=== PATIENT | female | born 1990 | race Caucasian/White ===

== ENCOUNTER 2022-05-18 18:54 | Emergency (ER) | payer OTHER ==
--- NOTE | 2022-05-18 18:56 | ERPHSYRPT ---
- History of Present Illness Time Seen by Provider: 05/18/22 18:56 Source: patient Allergies/Adverse Reactions: ketorolac [From Toradol] Allergy (Verified 07/25/21 11:26) Sulfa (Sulfonamide Antibiotics) Allergy (Verified 07/25/21 11:26) sulfamethoxazole [From Bactrim] Allergy (Verified 07/25/21 11:26) trimethoprim [From Bactrim] Allergy (Verified 07/25/21 11:26) Home Medications: Albuterol Sulfate [Albuterol Sulfate Hfa] 18 gm IH 09/20/12 [History] Multivit with Iron,Minerals [Compete] 1 tab PO DAILY 09/20/12 [History] Hx Influenza Vaccination/Date Given: No Hx Pneumococcal Vaccination/Date Given: No Travel Risk - Vaccine Status Have you recieved a Covid-19 vaccination: No - Past Medical History Pertinent Past Medical History: Yes Neurological History: No Pertinent History ENT History: No Pertinent History Cardiac History: No Pertinent History Respiratory History: No Pertinent History, Asthma Endocrine Medical History: No Pertinent History Musculoskeletal History: No Pertinent History GI Medical History: No Pertinent History, GERD History: No Pertinent History Psycho-Social History: No Pertinent History Female Reproductive Disorders: Menstrual Problems, Other Other Medical History: Chronic blood loss through menstration. Anemia with iron defiency - Past Surgical History Past Surgical History: Yes Neuro Surgical History: No Pertinent History Cardiac: No Pertinent History Respiratory: No Pertinent History Gastrointestinal: No Pertinent History Genitourinary: No Pertinent History Musculoskeletal: Orthopedic Surgery, Other Female Surgical History: No Pertinent History, Tubal Ligation, Section Other Surgical History: Right hand 2001. benign fibroids removed from right breast 2011. T+A 2015. 2016 and 2019 with tubal ligation - Social History Smoking Status: Never smoker Exposure to second hand smoke: Yes Drug Use: none Patient Lives Alone: No - Departure Referrals: DIDIER CARRASCO [Primary Care Provider] - Follow up/PCP as directed
[2022-05-18] MEDS ORDERED: Hydromorphone 1 mg/ml Injection IV ONE (19:42)
[2022-05-18] MEDS ORDERED: Zofran 4 MG/2 ML VIAL IV ONE (19:42)
[2022-05-18] MEDS ORDERED: Sodium Chloride 0.9% 1000 ML 1,000 ML IV STA (19:42)
--- NOTE | 2022-05-18 19:42 | ERPHSYRPT ---
- History of Present Illness Time Seen by Provider: 05/18/22 18:56 Historian: patient Exam Limitations: no limitations Physician History: This is a 32-year-old morbidly obese white female whose had bilateral tubal ligation in the past as well as section x2 in the past and presents with left flank pain which radiates around to the left lower quadrant. Patient describes the pain as shooting burning pain. She has a history of ruptured ovarian cyst in the past and it feels very similar to this per her report. Patient is just completing her last menstrual period symptoms began 9 days ago in the last 6 days she has had her menstrual period. She is usually not having vaginal bleeding at this point but today she is still having some dark brown with mixed red blood and small amount present vaginally. Patient also states that she has had a low-grade fever. She does not have a fever here today. Patient is refusing any placement of IV and she does not desire any narcotics. Timing/Duration: day(s) (9) Activities at Onset: none Quality: burning, stabbing Abdominal Pain Onset Location: LLQ, flank (Left flank) Pain Radiation: LLQ Severity of Pain-Max: mild (To moderate) Severity of Pain-Current: mild (To moderate) Modifying Factors: Improves With: nothing Associated Symptoms: denies symptoms Previous symptoms: same symptoms as today, no recent treatment Allergies/Adverse Reactions: ketorolac [From Toradol] Allergy (Verified 05/18/22 19:24) Sulfa (Sulfonamide Antibiotics) Allergy (Verified 05/18/22 19:24) sulfamethoxazole [From Bactrim] Allergy (Verified 05/18/22 19:24) trimethoprim [From Bactrim] Allergy (Verified 05/18/22 19:24) Home Medications: Multivit with Iron,Minerals [Compete] 1 tab PO DAILY 09/20/12 [History] Hx Influenza Vaccination/Date Given: No Hx Pneumococcal Vaccination/Date Given: No Travel Risk - International Travel Have you traveled outside of the country in past 3 weeks: No - Coronavirus Screening Are you exhibiting any of the following symptoms?: No Close contact with a COVID-19 positive Pt in past 14-21 Days: No - Vaccine Status Have you recieved a Covid-19 vaccination: No - Review of Systems Constitutional: No Symptoms Eyes: No Symptoms Ears, Nose, & Throat: No Symptoms Respiratory: No Symptoms Cardiac: No Symptoms Abdominal/Gastrointestinal: Abdominal Pain (Left lower quadrant) Genitourinary Symptoms: Vaginal Discharge (Brown with flecks of fresh blood present) Musculoskeletal: No Symptoms Skin: No Symptoms Neurological: No Symptoms Psychological: No Symptoms Endocrine: No Symptoms Hematologic/Lymphatic: No Symptoms Immunological/Allergic: No Symptoms All Other Systems: Reviewed and Negative - Past Medical History Pertinent Past Medical History: Yes Neurological History: No Pertinent History ENT History: No Pertinent History Cardiac History: No Pertinent History Respiratory History: No Pertinent History, Asthma Endocrine Medical History: No Pertinent History Musculoskeletal History: No Pertinent History GI Medical History: No Pertinent History, GERD History: No Pertinent History Psycho-Social History: No Pertinent History Female Reproductive Disorders: Menstrual Problems, Other Other Medical History: Chronic blood loss through menstration. Anemia with iron defiency - Past Surgical History Past Surgical History: Yes Neuro Surgical History: No Pertinent History Cardiac: No Pertinent History Respiratory: No Pertinent History Gastrointestinal: No Pertinent History Genitourinary: No Pertinent History Musculoskeletal: Orthopedic Surgery, Other Female Surgical History: No Pertinent History, Tubal Ligation, Section Other Surgical History: Right hand 2001. benign fibroids removed from right breast 2011. T+A 2015. 2016 and 2019 with tubal ligation - Social History Smoking Status: Never smoker Exposure to second hand smoke: Yes Drug Use: none Patient Lives Alone: No - Nursing Vital Signs Nursing Vital Signs: Initial Vital Signs Temperature 97.7 F 05/18/22 19:26 Pulse Rate 101 H 05/18/22 19:26 Respiratory Rate 20 05/18/22 19:26 Blood Pressure 140/82 05/18/22 19:26 O2 Sat by Pulse Oximetry 99 05/18/22 19:26 Pain Scale Pain Intensity 3 - Physical Exam General Appearance: no apparent distress, alert, anxiety, obese Eye Exam: PERRL/EOMI, eyes nml inspection Ears, Nose, Throat Exam: normal ENT inspection, moist mucous membranes Neck Exam: normal inspection, non-tender, supple, full range of motion Respiratory Exam: normal breath sounds, lungs clear, airway intact, No chest tenderness, No respiratory distress Cardiovascular Exam: regular rate/rhythm, normal heart sounds, normal peripheral pulses Gastrointestinal/Abdomen Exam: soft, normal bowel sounds, tenderness, guarding (Left lower quadrant), No rebound (Left lower quadrant) Pelvic Exam: not done Rectal Exam: not done Back Exam: normal inspection, normal range of motion, No CVA tenderness, No vertebral tenderness Extremity Exam: normal inspection, normal range of motion, pelvis stable Neurologic Exam: alert, oriented x 3, cooperative, milk driver II-XII nml as tested, normal mood/affect, nml cerebellar function, nml station & gait, sensation nml Skin Exam: normal color, warm, dry Lymphatic Exam: No adenopathy SpO2 Interpretation: normal O2 Delivery: Room Air - Course Nursing assessment & vital signs reviewed: Yes Ordered Tests: Active Orders 24 hr Category Date Time Status IV Insertion STAT Care 05/18/22 19:42 Active ABDOMEN AND PELVIS W/0 CONTRAS [CT] Stat Exams 05/18/22 20:19 Taken AMYLASE Stat Lab 05/18/22 19:48 Completed CBC W DIFF Stat Lab 05/18/22 19:48 Completed CMP Stat Lab 05/18/22 19:48 Completed LIPASE Stat Lab 05/18/22 19:48 Completed UA W/RFX UR CULTURE Stat Lab 05/18/22 19:48 Completed Medication Summary Discontinued Medications Generic Name Dose Route Start Last Admin Trade Name Freq PRN Reason Stop Dose Admin Hydromorphone HCl 1 mg 05/18/22 19:42 05/18/22 19:55 Hydromorphone 1 Mg/1ml Inj 1 Mg/Ml Syringe IV 05/18/22 19:43 Not Given STAT ONE Sodium Chloride 1,000 mls @ 999 mls/hr 05/18/22 19:42 05/18/22 19:55 Sodium Chloride 0.9% 1000 Ml IV 05/18/22 20:42 Not Given .Q1H1M STA Ondansetron HCl 4 mg 05/18/22 19:42 05/18/22 19:55 Ondansetron Hcl 4 Mg/2 Ml Vial IV 05/18/22 19:43 Not Given STAT ONE Lab/Rad Data: Laboratory Result Diagrams 05/18/22 19:48 05/18/22 19:48 Laboratory Results 05/18/22 05/18/22 05/18/22 Range/Units 19:48 19:48 19:48 WBC 10.1 (4.0-10.5) x10^3/uL RBC 5.04 (4.1-5.4) x10^6/uL Hgb 12.3 (12.0-16.0) g/dL Hct 40.5 (35-47) % MCV 80.4 (78-100) fL MCH 24.4 L (26-32) pg MCHC 30.4 L (32-36) g/dL RDW 14.6 H (11.5-14.0) % Plt Count 297 (150-450) x10^3/uL MPV 9.3 (7.5-11.0) fL Gran % 60.0 (36.0-66.0) % Immature Gran % (Auto) 0.3 (0.00-0.4) % Nucleat RBC Rel Count 0.0 (0.00-0.1) % Eos # (Auto) 0.25 (0-0.5) x10^3/uL Immature Gran # (Auto) 0.03 (0.00-0.03) x10^3u/L Absolute Lymphs (auto) 2.82 (1.0-4.6) x10^3/uL Absolute Monos (auto) 0.87 (0.0-1.3) x10^3/uL Absolute Nucleated RBC 0.00 (0.00-0.01) x10^3u/L Lymphocytes % 28.1 (24.0-44.0) % Monocytes % 8.7 (0.0-12.0) % Eosinophils % 2.5 (0.00-5.0) % Basophils % 0.4 (0.0-0.4) % Absolute Granulocytes 6.04 (1.4-6.9) x10^3/uL Basophils # 0.04 (0-0.4) x10^3/uL Sodium 140 (137-145) mmol/L Potassium 3.9 (3.5-5.1) mmol/L Chloride 104 (98-107) mmol/L Carbon Dioxide 30 (22-30) mmol/L Anion Gap 10.0 (5-15) MEQ/L BUN 12 (7-17) mg/dL Creatinine 0.80 (0.52-1.04) mg/dL Estimated GFR > 60.0 ML/MIN Glucose 103 (74-106) mg/dL Calcium 9.3 (8.4-10.2) mg/dL Total Bilirubin 0.30 (0.2-1.3) mg/dL AST 24 (14-36) U/L ALT 25 (0-35) U/L Alkaline Phosphatase 109 (38-126) U/L Serum Total Protein 7.9 (6.3-8.2) g/dL Albumin 4.3 (3.5-5.0) g/dL Amylase 65 (30-110) U/L Lipase 67 (23-300) U/L Urine Color Yellow (Yellow) Urine Appearance Clear (Clear) Urine pH 7.5 (4.6-8.0) Ur Specific [place] 1.020 (1.005-1.030) Urine Protein Negative (Negative) Urine Glucose (UA) Negative (Negative) mg/dL Urine Ketones Negative (Negative) Urine Blood Negative (Negative) Urine Nitrite Negative (Negative) Urine Bilirubin Negative (Negative) Urine Urobilinogen 1.0 A (0.2) mg/dL Ur Leukocyte Esterase Negative (Negative) U Hyaline Cast (Auto) NONE SEEN (0-2) /LPF Urine Microscopic RBC 0-2 (0-5) /HPF Urine Microscopic WBC 0-2 (0-5) /HPF Ur Epithelial Cells None Seen (None Seen) /HPF Urine Bacteria None Seen (None Seen) /HPF Urine Culture Reflexed NO (NO) - Progress Progress: improved, pain not gone completely Progress Note: 05/18/22 21:17 CAT scan of the abdomen pelvis without contrast shows hepatomegaly and splenomegaly. No other significant intra-abdominal or intrapelvic findings. Medical decision making: This patient has a medical issue in the emergency department of moderate complexity. I determined this level of complexity after discussing with the patient her specific complaints, obtaining her history not only directly from her but also review of old records and old laboratory results. In addition, I used the patient's physical exam findings to help determine his work-up here in the emergency department as well as her treatment. The patient has refused an intravenous line she is allowing blood draw and urinalysis as well as a CAT scan of the abdomen pelvis. She does not want any narcotic pain medicine. After the results of the laboratory data, urinalysis and the CAT scan of the abdomen and pelvis without contrast reviewed, I discussed with the patient discharge plan. Patient is having a mild amount of vaginal bleeding that has persisted a few days beyond her normal menstrual period timeframe per her report. Patient is to drink plenty of fluids. She is to follow-up with her primary care provider or field health officer. She is to use Tylenol and/or ibuprofen for pain control if she has no contraindications. Patient has a history of chronic anemia but her hemoglobin and vital signs are stable. Counseled pt/family regarding: lab results, diagnosis, need for follow-up, rad results - Departure Departure Disposition: Home Clinical Impression: Vaginal bleeding, Left lower quadrant abdominal pain, Left flank pain Condition: Stable Critical Care Time: No Referrals: DIDIER CARRASCO [Primary Care Provider] - Follow up/PCP as directed Additional Instructions: Drink plenty of fluids. If there are no contraindications, use Tylenol and ibuprofen for pain control. Follow-up with your primary care provider or your field health officer for further evaluation and management. Continue your other medication as prescribed.
[2022-05-18 20:15] LABS: Absolute Neutrophil Ct (ANC) 6.04 x10^3/uL (1.4-6.9); BASOPHIL % 0.4 % (0.0-0.4); Basophil (Absolute #) 0.04 x10^3/uL (0-0.4); Eosinophil % 2.5 % (0.00-5.0); Eosinophil (Absolute #) 0.25 x10^3/uL (0-0.5); Hematocrit 40.5 % (35-47); Hemoglobin 12.3 g/dL (12.0-16.0); IMMATURE GRAN # 0.03 x10^3u/L (0.00-0.03); IMMATURE GRAN % 0.3 % (0.00-0.4); Lymphocyte (Absolute #) 2.82 x10^3/uL (1.0-4.6); Lymphocytes % 28.1 % (24.0-44.0); Mean Cell Volume 80.4 fL (78-100); Mean Corpuscular Hemoglobin 24.4 pg (26-32); Mean Corpuscular Hgb Concent. 30.4 g/dL (32-36); Mean Platelet Volume 9.3 fL (7.5-11.0); Monocyte (Absolute #) 0.87 x10^3/uL (0.0-1.3); Monocytes % 8.7 % (0.0-12.0); Platelet Count 297 x10^3/uL (150-450); Red Blood Count 5.04 x10^6/uL (4.1-5.4); Red Cell Distribution Width 14.6 % (11.5-14.0); White Blood Count 10.1 x10^3/uL (4.0-10.5)
[2022-05-18 20:24] LABS: Appearance Clear (Clear); Bacteria None Seen /HPF (None Seen); Bilirubin Negative (Negative); Blood Negative (Negative); Epithelial Cells None Seen /HPF (None Seen); Glucose, Urine Negative (Negative); Hyaline Casts NONE SEEN /LPF (0-2); Ketones Negative (Negative); Leukocyte Esterase Negative (Negative); Nitrite Negative (Negative); Ph 7.5 (4.6-8.0); Protein,Urine Dip Negative (Negative); RBC 0-2 /HPF (0-5); WBC 0-2 /HPF (0-5)
[2022-05-18 20:33] LABS: ADD URINE CULTURE? NO (NO)
[2022-05-18 20:37] LABS: ALBUMIN 4.3 g/dL (3.5-5.0); ALKALINE PHOSPHATASE 109 U/L (38-126); AMYLASE 65 U/L (30-110); BLOOD UREA NITROGEN 12 mg/dL (7-17); CHLORIDE 104 mmol/L (98-107); Calcium 9.3 mg/dL (8.4-10.2); Carbon Dioxide 30 mmol/L (22-30); EST GLOMERULAR FILTRATION RATE > 60.0 ML/MIN; Glucose 103 mg/dL (74-106); LIPASE 67 U/L (23-300); Potassium 3.9 mmol/L (3.5-5.1); SGOT/AST 24 U/L (14-36); SGPT/ALT 25 U/L (0-35); SODIUM 140 mmol/L (137-145); Total Protein 7.9 g/dL (6.3-8.2)
[2022-05-18 21:02] VITALS: BP 126/82; PULSE 103; O2SAT 98
--- NOTE | 2022-05-19 08:49 | XRAY ---
Indication: Left flank pain and nausea. Multiple contiguous axial images obtained through the abdomen and pelvis without contrast using renal stone protocol. Comparison: None Lung bases are clear. Heart not enlarged. No renal calculus or evidence for obstructive uropathy in either system. Stomach is distended with food/fluid. Noncontrasted stomach and bowel loops appear nonobstructed with normal appendix. Previous cholecystectomy. Mild fatty hepatomegaly measuring 21 cm and splenomegaly measuring 14 cm. No free fluid/air. Remaining liver, pancreas, spleen, adrenal glands, kidneys, ureters, bladder, uterus, and aorta are unremarkable for noncontrast exam. Osseous structures intact with mild lumbosacral junction degenerative disc disease. No ventral or inguinal hernias. Impression: 1. Negative renal calculus or evidence for obstructive uropathy. 2. Fatty hepatomegaly and splenomegaly. 3. Remaining CT abdomen/pelvis without contrast exam is negative.
== END 2022-05-18 21:31 | disposition home or self-care (01) ==
LOC: ED 18:54
DX: N93.9 Abnormal uterine and vaginal bleeding, unspecified (principal); R10.32 Left lower quadrant pain; R10.9 Unspecified abdominal pain; R50.9 Fever, unspecified; Z28.310 Unvaccinated for COVID-19
CPT/HCPCS: 36415; 74176; 80053; 81001; 82150; 83690; 85025; 99283

== ENCOUNTER 2023-11-20 06:48 | Emergency (ER) | payer OTHER ==
[2023-11-20] MEDS ORDERED: XYLOCAINE 1% HCL 20 ML MDV IJ ONE (06:49)
[2023-11-20 07:03] VITALS: TEMP 97.8
--- NOTE | 2023-11-20 07:13 | ERPHSYRPT ---
- History of Present Illness Time Seen by Provider: 11/20/23 07:00 Historian: patient Exam Limitations: no limitations Patient Subjective Stated Complaint: pt states she has not been feeling well, had a hot flash and bp was 166/101 prior to checking in. c/o pain 4/10 in lt upper abd/below breast Triage Nursing Assessment: pt alert and oriented, answers questions approp. pt ambualtes into room with steady gait noted. respirations nonlabored. skin warm and dry. heart rate 98 on monitor, sinus rhythm. Physician History: For the past 4 days pt has had dull/crampy constant LUQ abdominal pain & left chest pain 4/10 in severity; for the past hour YR=775/101, dizziness and diaphoresis. Pt denies shortness of air, fever, nausea, vomiting, diarrhea, headache. Allergies/Adverse Reactions: nitrofurantoin [From Macrobid] Allergy (Intermediate, Verified 11/20/23 07:08) Hives Sulfa (Sulfonamide Antibiotics) Allergy (Intermediate, Verified 11/20/23 07:08) Hives sulfamethoxazole [From Bactrim] Allergy (Intermediate, Verified 11/20/23 07:08) Hives trimethoprim [From Bactrim] Allergy (Intermediate, Verified 11/20/23 07:08) Hives ketorolac [From Toradol] Adverse Reaction (Intermediate, Verified 11/20/23 07:08) feels bad Hx Tetanus, Diphtheria Vaccination/Date Given: No Hx Influenza Vaccination/Date Given: No Hx Pneumococcal Vaccination/Date Given: No Immunizations Up to Date: No Travel Risk - International Travel Have you traveled outside of the country in past 3 weeks: No - Emerging Infectious Disease Are you exhibiting symptoms associated with any current EIDs: No - Review of Systems Constitutional: No Fever Respiratory: No Dyspnea Abdominal/Gastrointestinal: Abdominal Pain, No Nausea, No Vomiting, No Diarrhea Neurological: Dizziness, No Headache - Past Medical History Pertinent Past Medical History: Yes Neurological History: No Pertinent History ENT History: No Pertinent History Cardiac History: No Pertinent History Respiratory History: Asthma Endocrine Medical History: No Pertinent History Musculoskeletal History: No Pertinent History GI Medical History: No Pertinent History History: No Pertinent History Psycho-Social History: Anxiety, Bipolar, Depression Female Reproductive Disorders: Menstrual Problems, Other Other Medical History: Chronic blood loss through menstruation. Anemia with iron defiency - Past Surgical History Past Surgical History: Yes Neuro Surgical History: No Pertinent History Cardiac: No Pertinent History Respiratory: No Pertinent History Gastrointestinal: Cholecystectomy Genitourinary: No Pertinent History Musculoskeletal: Orthopedic Surgery, Other Female Surgical History: No Pertinent History, Tubal Ligation, Section Other Surgical History: Right hand 2002. benign fibroids removed from right breast 2011. T+A 2015. 2016 and 2019 with tubal ligation - Female History Hx Last Menstrual Period: 10/25/23 Hx Now: No - Social History Smoking Status: Never smoker Exposure to second hand smoke: No Drug Use: none Patient Lives Alone: No - Social Determinants of Health Will the patient participate in the screening: Declined to provide - Nursing Vital Signs Nursing Vital Signs: Initial Vital Signs Temperature 97.8 F 11/20/23 06:50 Pulse Rate 102 H 11/20/23 06:50 Respiratory Rate 18 11/20/23 06:50 Blood Pressure 147/88 11/20/23 06:50 O2 Sat by Pulse Oximetry 100 11/20/23 06:50 Pain Scale Pain Intensity 4 - Physical Exam General Appearance: alert Eye Exam: PERRL/EOMI Ears, Nose, Throat Exam: TMs normal, pharyngeal erythema (mild) Neck Exam: normal inspection Respiratory Exam: normal breath sounds Cardiovascular Exam: normal heart sounds Gastrointestinal/Abdomen Exam: normal bowel sounds Back Exam: normal inspection Extremity Exam: swelling (+1 edema of ankles) Neurologic Exam: alert, cooperative Skin Exam: warm, dry SpO2 Interpretation: normal SpO2: 100 O2 Delivery: Room Air - Course Nursing assessment & vital signs reviewed: Yes EKG Interpreted by Me: RATE (100), Sinus Rhythm, NORMAL AXIS, Other (QTc = 414) - Radiology Exams Chest X-ray Interpretation: Discussed w/ radiologist (PA/lateral chest again demonstrates normal heart, lungs and bony thorax.) - CT Exams Abdomen/Pelvis CT Interpretation: Discussed w/radiologist (Again fatty hepatomegaly, splenomegaly and lumbosacral junction degenerative diac disease. No new/acute findings on this noncontrast exam.) Ordered Tests: Active Orders 24 hr Category Date Time Status EKG-ER Only STAT Care 11/20/23 07:15 Active IV Insertion STAT Care 11/20/23 07:15 Active ABDOMEN AND PELVIS W/0 CONTRAS [CT] Stat Exams 11/20/23 07:16 Completed CHEST 2 VIEWS (PA AND LAT) Stat Exams 11/20/23 07:16 Completed AMYLASE Stat Lab 11/20/23 07:38 Completed CBC W DIFF Stat Lab 11/20/23 07:38 Completed CMP Stat Lab 11/20/23 07:38 Completed CULTURE,URINE Stat Lab 11/20/23 07:45 Received LIPASE Stat Lab 11/20/23 07:38 Completed MAGNESIUM Stat Lab 11/20/23 07:38 Completed TROPONIN Q4H Lab 11/20/23 07:38 Completed TROPONIN Q4H Lab 11/20/23 11:30 Ordered TROPONIN Q4H Lab 11/20/23 15:30 Ordered UA W/RFX UR CULTURE Stat Lab 11/20/23 07:45 Completed Medication Summary Generic Name Dose Route Start Last Admin Trade Name Freq PRN Reason Stop Dose Admin Sodium Chloride 1,000 mls @ 100 mls/hr 11/20/23 07:15 11/20/23 08:21 Sodium Chloride 0.9% 1000 Ml IV 12/20/23 07:14 Not Given .Q10H MAGNOLIA Discontinued Medications Generic Name Dose Route Start Last Admin Trade Name Freq PRN Reason Stop Dose Admin Ceftriaxone Sodium 1,000 mg 11/20/23 08:21 11/20/23 08:29 Ceftriaxone Sodium 1000 Mg Inj Vial IM 11/20/23 08:22 1,000 mg STAT ONE Administration Ceftriaxone Sodium Confirm 11/20/23 08:23 Ceftriaxone Sodium 1000 Mg Inj Vial Administered 11/20/23 08:24 Dose 1,000 mg .ROUTE .STK-MED ONE Acetaminophen 1,000 mg in 100 mls @ 400 mls/hr 11/20/23 07:17 11/20/23 08:21 Ofirmev IV 11/20/23 07:31 Not Given 1HRPRIOR ONE Acetaminophen Confirm 11/20/23 07:52 Ofirmev Administered 11/20/23 07:53 Dose 100 mls @ ud IV .STK-MED ONE Ceftriaxone Sodium 1 gm in 100 mls @ 200 mls/hr 11/20/23 08:06 Rocephin 1 Gm / 100 Ml Nacl IV 11/20/23 08:35 STAT ONE Lab/Rad Data: Laboratory Result Diagrams 11/20/23 07:38 11/20/23 07:38 Laboratory Results 08/06/24 08/06/24 08/06/24 Range/Units 07:45 07:38 07:38 WBC (3.98-10.04) x10^3/uL RBC (3.93-5.22) x10^6/uL Hgb (11.2-15.7) g/dL Hct (34.1-44.9) % MCV (79.4-94.8) fL MCH (25.6-32.2) pg MCHC (32.2-35.5) g/dL RDW (11.7-14.4) % Plt Count (182-369) x10^3/uL MPV (9.4-12.3) fL Gran % (34.0-71.1) % Immature Gran % (Auto) (0.001-0.429) % Nucleat RBC Rel Count (0.00-0.2) % Eos # (Auto) (0.04-0.36) x10^3/uL Immature Gran # (Auto) (0.001-0.031) x10^3u/L Absolute Lymphs (auto) (1.18-3.74) x10^3/uL Absolute Monos (auto) (0.24-0.86) x10^3/uL Absolute Nucleated RBC (0.00-0.012) x10^3u/L Lymphocytes % (19.3-51.7) % Monocytes % (4.7-12.5) % Eosinophils % (0.7-5.8) % Basophils % (0.1-1.2) % Absolute Granulocytes (1.56-6.13) x10^3/uL Basophils # (0.01-0.08) x10^3/uL Sodium 140 (135-145) mmol/L Potassium 3.9 (3.5-5.1) mmol/L Chloride 106 (98-107) mmol/L Carbon Dioxide 26 (22-30) mmol/L Anion Gap 12.1 (5-15) MEQ/L BUN 13 (7-17) mg/dL Creatinine 0.89 (0.52-1.04) mg/dL Estimated GFR 88.8 ML/MIN Glucose 123 H (74-106) mg/dL Calcium 9.2 (8.4-10.2) mg/dL Magnesium 1.9 (1.6-2.3) mg/dL Total Bilirubin 0.20 (0.2-1.3) mg/dL AST 21 (14-36) U/L ALT 18 (0-35) U/L Alkaline Phosphatase 108 (38-126) U/L Troponin I < 0.012 (0.000-0.033) ng/mL Serum Total Protein 6.7 (6.3-8.2) g/dL Albumin 3.9 (3.5-5.0) g/dL Amylase 64 (30-110) U/L Lipase 112 (23-300) U/L Urine Color Yellow (Yellow) Urine Appearance Cloudy A (Clear) Urine pH 5.5 (4.6-8.0) Ur Specific [place] >=1.030 A (1.005-1.030) Urine Protein Negative (Negative) Urine Glucose (UA) Negative (Negative) mg/dL Urine Ketones Trace A (Negative) Urine Blood Negative (Negative) Urine Nitrite Negative (Negative) Urine Bilirubin Negative (Negative) Urine Urobilinogen 1.0 A (0.2) mg/dL Ur Leukocyte Esterase Trace A (Negative) U Hyaline Cast (Auto) 3-5 A (0-2) /LPF Urine Microscopic RBC 0-2 (0-5) /HPF Urine Microscopic WBC 11-20 A (0-5) /HPF Ur Epithelial Cells Moderate A (None Seen) /HPF Urine Bacteria Moderate A (None Seen) /HPF Urine Culture Reflexed YES (NO) Influenza Type A Ag (NEGATIVE) Influenza Type B Ag (NEGATIVE) RSV (PCR) (NEGATIVE) SARS-CoV-2 (PCR) (NEGATIVE) Group A Strep Antibody (NEGATIVE) 11/20/23 11/20/23 11/20/23 Range/Units 07:38 07:32 07:30 WBC 10.3 H (3.98-10.04) x10^3/uL RBC 4.66 (3.93-5.22) x10^6/uL Hgb 11.6 (11.2-15.7) g/dL Hct 36.8 (34.1-44.9) % MCV 79.0 L (79.4-94.8) fL MCH 24.9 L (25.6-32.2) pg MCHC 31.5 L (32.2-35.5) g/dL RDW 14.0 (11.7-14.4) % Plt Count 264 (182-369) x10^3/uL MPV 9.5 (9.4-12.3) fL Gran % 57.5 (34.0-71.1) % Immature Gran % (Auto) 0.3 (0.001-0.429) % Nucleat RBC Rel Count 0.0 (0.00-0.2) % Eos # (Auto) 0.19 (0.04-0.36) x10^3/uL Immature Gran # (Auto) 0.03 (0.001-0.031) x10^3u/L Absolute Lymphs (auto) 3.39 (1.18-3.74) x10^3/uL Absolute Monos (auto) 0.74 (0.24-0.86) x10^3/uL Absolute Nucleated RBC 0.00 (0.00-0.012) x10^3u/L Lymphocytes % 32.8 (19.3-51.7) % Monocytes % 7.2 (4.7-12.5) % Eosinophils % 1.8 (0.7-5.8) % Basophils % 0.4 (0.1-1.2) % Absolute Granulocytes 5.93 (1.56-6.13) x10^3/uL Basophils # 0.04 (0.01-0.08) x10^3/uL Sodium (135-145) mmol/L Potassium (3.5-5.1) mmol/L Chloride (98-107) mmol/L Carbon Dioxide (22-30) mmol/L Anion Gap (5-15) MEQ/L BUN (7-17) mg/dL Creatinine (0.52-1.04) mg/dL Estimated GFR ML/MIN Glucose (74-106) mg/dL Calcium (8.4-10.2) mg/dL Magnesium (1.6-2.3) mg/dL Total Bilirubin (0.2-1.3) mg/dL AST (14-36) U/L ALT (0-35) U/L Alkaline Phosphatase (38-126) U/L Troponin I (0.000-0.033) ng/mL Serum Total Protein (6.3-8.2) g/dL Albumin (3.5-5.0) g/dL Amylase (30-110) U/L Lipase (23-300) U/L Urine Color (Yellow) Urine Appearance (Clear) Urine pH (4.6-8.0) Ur Specific [place] (1.005-1.030) Urine Protein (Negative) Urine Glucose (UA) (Negative) mg/dL Urine Ketones (Negative) Urine Blood (Negative) Urine Nitrite (Negative) Urine Bilirubin (Negative) Urine Urobilinogen (0.2) mg/dL Ur Leukocyte Esterase (Negative) U Hyaline Cast (Auto) (0-2) /LPF Urine Microscopic RBC (0-5) /HPF Urine Microscopic WBC (0-5) /HPF Ur Epithelial Cells (None Seen) /HPF Urine Bacteria (None Seen) /HPF Urine Culture Reflexed (NO) Influenza Type A Ag NEGATIVE (NEGATIVE) Influenza Type B Ag NEGATIVE (NEGATIVE) RSV (PCR) NEGATIVE (NEGATIVE) SARS-CoV-2 (PCR) NEGATIVE (NEGATIVE) Group A Strep Antibody NOT DETECTED (NEGATIVE) - Progress Progress: improved Counseled pt/family regarding: lab results, diagnosis, need for follow-up, rad results Medical Desision Making - Diagnostic Testing Diagnostic test were ordered, analyzed, and reviewed by me: Yes Radiological Interpretation: Discussed w/ radiologist - Departure Departure Disposition: Home Clinical Impression: UTI (urinary tract infection), HTN (hypertension), Abdominal pain Condition: Stable Critical Care Time: No Referrals: CHERYLE SWEET DELIVERY RN [Primary Care Provider] - Follow up/PCP as directed Instructions: Malignant Hypertension (DC), Urinary tract infections in adults Additional Instructions: Follow up with private doctor today. Forms: Work/School Release Form Prescriptions: Cefpodoxime Proxetil 200 mg [Vantin 200 mg] 200 mg PO BID #20 tablet
[2023-11-20 07:47] LABS: Absolute Neutrophil Ct (ANC) 5.93 x10^3/uL (1.56-6.13); BASOPHIL % 0.4 % (0.1-1.2); Basophil (Absolute #) 0.04 x10^3/uL (0.01-0.08); Eosinophil % 1.8 % (0.7-5.8); Eosinophil (Absolute #) 0.19 x10^3/uL (0.04-0.36); Hematocrit 36.8 % (34.1-44.9); Hemoglobin 11.6 g/dL (11.2-15.7); IMMATURE GRAN # 0.03 x10^3u/L (0.001-0.031); IMMATURE GRAN % 0.3 % (0.001-0.429); Lymphocyte (Absolute #) 3.39 x10^3/uL (1.18-3.74); Lymphocytes % 32.8 % (19.3-51.7); Mean Corpuscular Hemoglobin 24.9 pg (25.6-32.2); Mean Corpuscular Hgb Concent. 31.5 g/dL (32.2-35.5); Mean Platelet Volume 9.5 fL (9.4-12.3); Monocyte (Absolute #) 0.74 x10^3/uL (0.24-0.86); Monocytes % 7.2 % (4.7-12.5); Neutrophil % 57.5 % (34.0-71.1); Platelet Count 264 x10^3/uL (182-369); Red Blood Count 4.66 x10^6/uL (3.93-5.22); White Blood Count 10.3 x10^3/uL (3.98-10.04)
[2023-11-20] MEDS ORDERED: Sodium Chloride 0.9% 1000 ML 0 ML ONE (07:52)
[2023-11-20] MEDS ORDERED: OFIRMEV IV ONE (07:52)
[2023-11-20 07:57] LABS: Appearance Cloudy (Clear); Bacteria Moderate /HPF (None Seen); Bilirubin Negative (Negative); Blood Negative (Negative); Epithelial Cells Moderate /HPF (None Seen); Glucose, Urine Negative (Negative); Ketones Trace (Negative); Leukocyte Esterase Trace (Negative); Nitrite Negative (Negative); Ph 5.5 (4.6-8.0); Protein,Urine Dip Negative (Negative); RBC 0-2 /HPF (0-5); Specific Gravity >=1.030 (1.005-1.030)
[2023-11-20 07:58] LABS: ADD URINE CULTURE? YES (NO)
[2023-11-20 08:06] LABS: ALBUMIN 3.9 g/dL (3.5-5.0); ANION GAP 12.1 MEQ/L (5-15); BILIRUBIN,TOTAL 0.2 mg/dL (0.2-1.3); Calcium 9.2 mg/dL (8.4-10.2); Creatinine 1 0.89 mg/dL (0.52-1.04); EST GLOMERULAR FILTRATION RATE 88.8 ML/MIN; MAGNESIUM 1.9 mg/dL (1.6-2.3); Potassium 3.9 mmol/L (3.5-5.1); Total Protein 6.7 g/dL (6.3-8.2)
[2023-11-20] MEDS: OFIRMEV 1,000 MG/100 ML ML IV ONE (08:21)
[2023-11-20] MEDS: Sodium Chloride 0.9% 1000 ML 1,000 ML IV SCH (08:21)
[2023-11-20] MEDS ORDERED: Rocephin 1000 MG INJ ONE (08:23)
[2023-11-20] MEDS: Rocephin 1000 MG INJ IM ONE (08:29)
[2023-11-20 08:30] LABS: INFLUENZA A NEGATIVE (NEGATIVE); INFLUENZA B NEGATIVE (NEGATIVE); RESPIRATORY SYNCTIAL VIRUS NEGATIVE (NEGATIVE); SARS-CoV-2 Xpert Express NEGATIVE (NEGATIVE)
--- NOTE | 2023-11-20 08:36 | XRAY ---
Indication: Left upper quadrant abdominal pain. Hot flash. Multiple contiguous axial images obtained through abdomen and pelvis without contrast. Comparison: May 18, 2022 Lung bases remain clear. Heart not enlarged. Stomach is distended with food/fluid. Noncontrasted stomach and bowel loops appear nonobstructed with normal appendix. Again 20 cm fatty hepatomegaly, 14.2 cm splenomegaly, and cholecystectomy. No free fluid/air. Remaining liver, pancreas, spleen, adrenal glands, kidneys, ureters, bladder, uterus, and aorta are unremarkable for noncontrast exam. Osseous structures intact again with mild lumbosacral junction degenerative disc disease. Impression: Again fatty hepatomegaly, splenomegaly, and lumbosacral junction degenerative disc disease. No new/acute findings on this noncontrast exam.
--- NOTE | 2023-11-20 08:36 | XRAY ---
Indication: Left chest pain. Comparison: May 14, 2013 PA/lateral chest again demonstrates normal heart, lungs, and bony thorax.
[2023-11-20 08:37] VITALS: BP 126/76; PULSE 101
[2023-11-20 08:48] VITALS: O2SAT 100
[2023-11-20 09:24] VITALS: RESP 16
[2023-11-20] MEDS: ROCEPHIN 1 GM / 100 ML NaCl 1 GM/100 ML IVPB IV ONE (09:25)
== END 2023-11-20 09:23 | disposition home or self-care (01) ==
LOC: ED 06:48
DX: N39.0 Urinary tract infection, site not specified (principal); I10 Essential (primary) hypertension; R10.12 Left upper quadrant pain; R07.9 Chest pain, unspecified; R42 Dizziness and giddiness; Z79.899 Other long term (current) drug therapy
CPT/HCPCS: 0241U; 36415; 71046; 74176; 80053; 81001; 82150; 83690; 83735; 84484; 85025; 87086; 87651; 93005; 96372; 99284; J0696

== ENCOUNTER 2024-03-24 19:57 | Emergency (ER) | payer OTHER ==
--- NOTE | 2024-03-24 20:06 | ERPHSYRPT ---
- History of Present Illness Time Seen by Provider: 03/24/24 20:05 Historian: patient Exam Limitations: no limitations Physician History: This is a morbidly obese 33-year-old white female patient who arrives by private vehicle with 2-week history of intermittent left upper quadrant abdominal pain with radiation into her left flank. She has had intermittent episodes of nausea. Patient has had a cholecystectomy, bilateral tubal ligation and section. Patient does not want a intravenous line. She plans to go to work and therefore she does not want anything sedating. She also does not want any antiemetic or oral pain medicine at this time. Patient denies chest pain. Patient denies shortness of breath. Patient does have a history of asthma, anxiety, bipolar disorder, depression, and chronic anemia. Timing/Duration: week(s) (2 weeks), intermittent Abdominal Pain Onset Location: [facility] Pain Radiation: flank (Left flank) Severity of Pain-Max: moderate Severity of Pain-Current: mild Modifying Factors: Improves With: nothing Associated Symptoms: nausea, No chest pain, No fever/chills, No headache, No loss of appetite, No neck pain, No shortness of breath, No weakness Previous symptoms: same symptoms as today, no recent treatment Allergies/Adverse Reactions: nitrofurantoin [From Macrobid] Allergy (Intermediate, Verified 03/24/24 20:20) Hives Sulfa (Sulfonamide Antibiotics) Allergy (Intermediate, Verified 03/24/24 20:20) Hives sulfamethoxazole [From Bactrim] Allergy (Intermediate, Verified 03/24/24 20:20) Hives trimethoprim [From Bactrim] Allergy (Intermediate, Verified 03/24/24 20:20) Hives escitalopram [From Lexapro] Adverse Reaction (Severe, Verified 03/24/24 20:20) buspirone [From BuSpar] Adverse Reaction (Intermediate, Verified 03/24/24 20:20) ketorolac [From Toradol] Adverse Reaction (Intermediate, Verified 03/24/24 20:20) feels bad lorazepam [From Ativan] Adverse Reaction (Verified 03/24/24 20:20) Hx Tetanus, Diphtheria Vaccination/Date Given: No Hx Influenza Vaccination/Date Given: No Hx Pneumococcal Vaccination/Date Given: No Travel Risk - International Travel Have you traveled outside of the country in past 3 weeks: No - Emerging Infectious Disease Are you exhibiting symptoms associated with any current EIDs: No - Review of Systems Constitutional: No Symptoms Eyes: No Symptoms Ears, Nose, & Throat: No Symptoms Respiratory: No Symptoms Cardiac: No Symptoms Abdominal/Gastrointestinal: Abdominal Pain (Left upper quadrant), Nausea, No Vomiting, No Diarrhea, No Constipation, No Appetite Changes Genitourinary Symptoms: No Symptoms Musculoskeletal: No Symptoms Skin: No Symptoms Neurological: No Symptoms Psychological: No Symptoms Endocrine: No Symptoms Hematologic/Lymphatic: No Symptoms Immunological/Allergic: No Symptoms All Other Systems: Reviewed and Negative - Past Medical History Pertinent Past Medical History: Yes Neurological History: No Pertinent History ENT History: No Pertinent History Cardiac History: No Pertinent History Respiratory History: Asthma Endocrine Medical History: No Pertinent History Musculoskeletal History: No Pertinent History GI Medical History: No Pertinent History History: No Pertinent History Psycho-Social History: Anxiety, Bipolar, Depression Female Reproductive Disorders: Menstrual Problems, Other Other Medical History: Chronic blood loss through menstruation. Anemia with iron defiency - Past Surgical History Past Surgical History: Yes Neuro Surgical History: No Pertinent History Cardiac: No Pertinent History Respiratory: No Pertinent History Gastrointestinal: Cholecystectomy Genitourinary: No Pertinent History Musculoskeletal: Orthopedic Surgery, Other Female Surgical History: No Pertinent History, Tubal Ligation, Section Other Surgical History: Right hand 2001. benign fibroids removed from right breast 2011. T+A 2015. 2016 and 2019 with tubal ligation - Female History Hx Last Menstrual Period: 10/25/23 - Social History Smoking Status: Never smoker Exposure to second hand smoke: No Drug Use: none Patient Lives Alone: No - Social Determinants of Health Will the patient participate in the screening: Declined to provide - Nursing Vital Signs Nursing Vital Signs: Initial Vital Signs Temperature 97.6 F 03/24/24 19:57 Pulse Rate 101 H 03/24/24 19:57 Respiratory Rate 20 03/24/24 19:57 Blood Pressure 136/89 03/24/24 19:57 O2 Sat by Pulse Oximetry 99 03/24/24 19:57 Pain Scale Pain Intensity 6 - Physical Exam General Appearance: no apparent distress, alert, anxiety, obese Eye Exam: PERRL/EOMI, eyes nml inspection Ears, Nose, Throat Exam: normal ENT inspection, moist mucous membranes Neck Exam: normal inspection, non-tender, supple, full range of motion Respiratory Exam: normal breath sounds, lungs clear, airway intact, No chest tenderness, No respiratory distress Cardiovascular Exam: regular rate/rhythm, normal heart sounds, normal peripheral pulses Gastrointestinal/Abdomen Exam: soft, normal bowel sounds, tenderness (Mild left upper quadrant to palpation), guarding (Mild to palpation left upper quadrant), No rebound Pelvic Exam: not done Rectal Exam: not done Back Exam: normal inspection, normal range of motion, No CVA tenderness, No vertebral tenderness Extremity Exam: normal inspection, normal range of motion, pelvis stable Neurologic Exam: alert, oriented x 3, cooperative, home mortgage disclosure act specialist II-XII nml as tested, nml cerebellar function, nml station & gait, sensation nml Skin Exam: normal color, warm, dry Lymphatic Exam: No adenopathy SpO2 Interpretation: normal O2 Delivery: Room Air - Course Nursing assessment & vital signs reviewed: Yes Ordered Tests: Active Orders 24 hr Category Date Time Status ABDOMEN AND PELVIS W/0 CONTRAS [CT] Stat Exams 03/24/24 20:23 Taken AMYLASE Stat Lab 03/24/24 20:45 Completed CBC W DIFF Stat Lab 03/24/24 20:45 Completed CMP Stat Lab 03/24/24 20:45 Completed CULTURE,URINE Stat Lab 03/24/24 20:10 Received HCG QUALITATIVE, URINE Stat Lab 03/24/24 20:10 Completed LIPASE Stat Lab 03/24/24 20:45 Completed Lactic Acid Stat Lab 03/24/24 20:45 Completed UA W/RFX UR CULTURE Stat Lab 03/24/24 20:10 Completed Medication Summary Generic Name Dose Route Start Last Admin Trade Name Freq PRN Reason Stop Dose Admin Cephalexin HCl 500 mg 03/24/24 21:57 Cephalexin Mh500 Mg Capsule PO 03/24/24 21:58 STAT ONE Discontinued Medications Generic Name Dose Route Start Last Admin Trade Name Freq PRN Reason Stop Dose Admin Hydromorphone HCl 1 mg 03/24/24 20:23 03/24/24 20:31 Hydromorphone 1 Mg/1ml Inj IV 03/24/24 20:24 Not Given STAT ONE Sodium Chloride 1,000 mls @ 999 mls/hr 03/24/24 20:23 03/24/24 20:31 Sodium Chloride 0.9% 1000 Ml IV 03/24/24 21:23 Not Given .Q1H1M STA Ondansetron HCl 4 mg 03/24/24 20:23 03/24/24 20:32 Ondansetron Hcl 4 Mg/2 Ml Vial IV 03/24/24 20:24 Not Given STAT ONE Pantoprazole Sodium 40 mg 03/24/24 20:23 03/24/24 20:31 Pantoprazole 40 Mg Vial IV 03/24/24 20:24 Not Given STAT ONE Lab/Rad Data: Laboratory Result Diagrams 03/24/24 20:45 03/24/24 20:45 Laboratory Results 03/24/24 03/24/24 03/24/24 Range/Units 20:45 20:45 20:45 WBC 9.4 (3.98-10.04) x10^3/uL RBC 4.93 (3.93-5.22) x10^6/uL Hgb 12.1 (11.2-15.7) g/dL Hct 39.0 (34.1-44.9) % MCV 79.1 L (79.4-94.8) fL MCH 24.5 L (25.6-32.2) pg MCHC 31.0 L (32.2-35.5) g/dL RDW 13.9 (11.7-14.4) % Plt Count 277 (182-369) x10^3/uL MPV 9.4 (9.4-12.3) fL Gran % 62.2 (34.0-71.1) % Immature Gran % (Auto) 0.3 (0.001-0.429) % Nucleat RBC Rel Count 0.0 (0.00-0.2) % Eos # (Auto) 0.19 (0.04-0.36) x10^3/uL Immature Gran # (Auto) 0.03 (0.001-0.031) x10^3u/L Absolute Lymphs (auto) 2.61 (1.18-3.74) x10^3/uL Absolute Monos (auto) 0.68 (0.24-0.86) x10^3/uL Absolute Nucleated RBC 0.00 (0.00-0.012) x10^3u/L Lymphocytes % 27.9 (19.3-51.7) % Monocytes % 7.3 (4.7-12.5) % Eosinophils % 2.0 (0.7-5.8) % Basophils % 0.3 (0.1-1.2) % Absolute Granulocytes 5.81 (1.56-6.13) x10^3/uL Basophils # 0.03 (0.01-0.08) x10^3/uL Sodium 140 (135-145) mmol/L Potassium 3.5 (3.5-5.1) mmol/L Chloride 104 (98-107) mmol/L Carbon Dioxide 27 (22-30) mmol/L Anion Gap 12.7 (5-15) MEQ/L BUN 10 (7-17) mg/dL Creatinine 0.82 (0.52-1.04) mg/dL Estimated GFR 98.0 ML/MIN Glucose 115 H (74-106) mg/dL Lactic Acid 1.7 (0.4-2.0) Calcium 9.5 (8.4-10.2) mg/dL Total Bilirubin 0.40 (0.2-1.3) mg/dL AST 26 (14-36) U/L ALT 24 (0-35) U/L Alkaline Phosphatase 91 (38-126) U/L Serum Total Protein 7.7 (6.3-8.2) g/dL Albumin 4.2 (3.5-5.0) g/dL Amylase 50 (30-110) U/L Lipase 46 (23-300) U/L Urine Color (Yellow) Urine Appearance (Clear) Urine pH (4.6-8.0) Ur Specific [place] (1.005-1.030) Urine Protein (Negative) Urine Glucose (UA) (Negative) mg/dL Urine Ketones (Negative) Urine Blood (Negative) Urine Nitrite (Negative) Urine Bilirubin (Negative) Urine Urobilinogen (0.2) mg/dL Ur Leukocyte Esterase (Negative) U Hyaline Cast (Auto) (0-2) /LPF Urine Microscopic RBC (0-5) /HPF Urine Microscopic WBC (0-5) /HPF Ur Epithelial Cells (None Seen) /HPF Urine Bacteria (None Seen) /HPF Urine Culture Reflexed (NO) Urine HCG, Qual (NEGATIVE) 03/24/24 03/24/24 Range/Units 20:10 20:10 WBC (3.98-10.04) x10^3/uL RBC (3.93-5.22) x10^6/uL Hgb (11.2-15.7) g/dL Hct (34.1-44.9) % MCV (79.4-94.8) fL MCH (25.6-32.2) pg MCHC (32.2-35.5) g/dL RDW (11.7-14.4) % Plt Count (182-369) x10^3/uL MPV (9.4-12.3) fL Gran % (34.0-71.1) % Immature Gran % (Auto) (0.001-0.429) % Nucleat RBC Rel Count (0.00-0.2) % Eos # (Auto) (0.04-0.36) x10^3/uL Immature Gran # (Auto) (0.001-0.031) x10^3u/L Absolute Lymphs (auto) (1.18-3.74) x10^3/uL Absolute Monos (auto) (0.24-0.86) x10^3/uL Absolute Nucleated RBC (0.00-0.012) x10^3u/L Lymphocytes % (19.3-51.7) % Monocytes % (4.7-12.5) % Eosinophils % (0.7-5.8) % Basophils % (0.1-1.2) % Absolute Granulocytes (1.56-6.13) x10^3/uL Basophils # (0.01-0.08) x10^3/uL Sodium (135-145) mmol/L Potassium (3.5-5.1) mmol/L Chloride (98-107) mmol/L Carbon Dioxide (22-30) mmol/L Anion Gap (5-15) MEQ/L BUN (7-17) mg/dL Creatinine (0.52-1.04) mg/dL Estimated GFR ML/MIN Glucose (74-106) mg/dL Lactic Acid (0.4-2.0) Calcium (8.4-10.2) mg/dL Total Bilirubin (0.2-1.3) mg/dL AST (14-36) U/L ALT (0-35) U/L Alkaline Phosphatase (38-126) U/L Serum Total Protein (6.3-8.2) g/dL Albumin (3.5-5.0) g/dL Amylase (30-110) U/L Lipase (23-300) U/L Urine Color Yellow (Yellow) Urine Appearance Cloudy A (Clear) Urine pH 6.5 (4.6-8.0) Ur Specific [place] 1.025 (1.005-1.030) Urine Protein Trace A (Negative) Urine Glucose (UA) Negative (Negative) mg/dL Urine Ketones Negative (Negative) Urine Blood Negative (Negative) Urine Nitrite Negative (Negative) Urine Bilirubin Negative (Negative) Urine Urobilinogen 1.0 A (0.2) mg/dL Ur Leukocyte Esterase Small A (Negative) U Hyaline Cast (Auto) NONE SEEN (0-2) /LPF Urine Microscopic RBC 0-2 (0-5) /HPF Urine Microscopic WBC 3-5 (0-5) /HPF Ur Epithelial Cells Many A (None Seen) /HPF Urine Bacteria Many A (None Seen) /HPF Urine Culture Reflexed YES (NO) Urine HCG, Qual NEGATIVE (NEGATIVE) - Progress Progress: improved, pain not gone completely Progress Note: 03/24/24 21:01 My medical decision making and the assignment of moderate complexity to this patient's medical issue today is based on review of the patient's past medical history, review of patient's medication list, review of the patient's drug allergy list, history present illness and physical findings on examination. The workup in this patient includes CBC, CMP, amylase, lipase, lactic acid level, urinalysis, CT scan of the abdomen pelvis without contrast. I ordered an intravenous line with intravenous pain medicine and antiemetic. However, the patient is refusing intravenous line, pain medication and antiemetic at this time. Differential diagnosis includes but is not limited to gastritis, pancreatitis, colitis, abdominal wall pain 03/24/24 21:58 I interpreted the patient's laboratory data results. Based on the laboratory data results, the patient has a urinary tract infection. The CT scan of the abdomen pelvis was interpreted by the radiologist and I reviewed the impression. The impression states it is a normal CT scan of the abdomen pelvis without contrast. Counseled pt/family regarding: lab results, diagnosis, need for follow-up, rad results Medical Desision Making - Diagnostic Testing Diagnostic test were ordered, analyzed, and reviewed by me: Yes Radiological Interpretation: Reviewed by me, Teleradiologist Report - Risk of complications The pt has a mod risk of morbidity or mortality based on: Need for prescription drug management - Departure Departure Disposition: Home Clinical Impression: Urinary tract infection Condition: Stable Critical Care Time: No Referrals: CHERYLE SWEET FNP [Primary Care Provider] - Follow up/PCP as directed Additional Instructions: Drink plenty of fluids. Take your antibiotics as prescribed. Use Tylenol and ibuprofen for pain control. Call your primary care provider tomorrow, 03/25/2024, to make arrangements for follow-up appointment and to be seen in the next 5 to 7 days. Prescriptions: Cephalexin Mh 500 mg [Keflex 500 mg] 500 mg PO TID #21 cap
[2024-03-24 20:08] VITALS: TEMP 97.6
[2024-03-24 20:18] LABS: HCG URINE TEST NEGATIVE (NEGATIVE)
[2024-03-24] MEDS: Hydromorphone 1 mg/ml Injection IV ONE (20:31)
[2024-03-24] MEDS: Sodium Chloride 0.9% 1000 ML 1,000 ML IV STA (20:31)
[2024-03-24] MEDS: PROTONIX 40 MG IV IV ONE (20:31)
[2024-03-24] MEDS: Zofran 4 MG/2 ML VIAL IV ONE (20:32)
[2024-03-24 20:34] LABS: Appearance Cloudy (Clear); Bacteria Many /HPF (None Seen); Bilirubin Negative (Negative); Blood Negative (Negative); Epithelial Cells Many /HPF (None Seen); Glucose, Urine Negative (Negative); Hyaline Casts NONE SEEN /LPF (0-2); Ketones Negative (Negative); Leukocyte Esterase Small (Negative); Nitrite Negative (Negative); Ph 6.5 (4.6-8.0); Protein,Urine Dip Trace (Negative); Specific Gravity 1.025 (1.005-1.030)
[2024-03-24 20:36] LABS: RBC 0-2 /HPF (0-5)
[2024-03-24 20:52] LABS: Absolute Neutrophil Ct (ANC) 5.81 x10^3/uL (1.56-6.13); BASOPHIL % 0.3 % (0.1-1.2); Basophil (Absolute #) 0.03 x10^3/uL (0.01-0.08); Eosinophil (Absolute #) 0.19 x10^3/uL (0.04-0.36); Hemoglobin 12.1 g/dL (11.2-15.7); IMMATURE GRAN # 0.03 x10^3u/L (0.001-0.031); IMMATURE GRAN % 0.3 % (0.001-0.429); Lymphocyte (Absolute #) 2.61 x10^3/uL (1.18-3.74); Lymphocytes % 27.9 % (19.3-51.7); Mean Cell Volume 79.1 fL (79.4-94.8); Mean Corpuscular Hemoglobin 24.5 pg (25.6-32.2); Mean Platelet Volume 9.4 fL (9.4-12.3); Monocyte (Absolute #) 0.68 x10^3/uL (0.24-0.86); Monocytes % 7.3 % (4.7-12.5); Neutrophil % 62.2 % (34.0-71.1); Platelet Count 277 x10^3/uL (182-369); Red Blood Count 4.93 x10^6/uL (3.93-5.22); Red Cell Distribution Width 13.9 % (11.7-14.4); White Blood Count 9.4 x10^3/uL (3.98-10.04)
[2024-03-24 21:14] LABS: ALBUMIN 4.2 g/dL (3.5-5.0); ANION GAP 12.7 MEQ/L (5-15); BILIRUBIN,TOTAL 0.4 mg/dL (0.2-1.3); Calcium 9.5 mg/dL (8.4-10.2); Creatinine 1 0.82 mg/dL (0.52-1.04); Potassium 3.5 mmol/L (3.5-5.1); Total Protein 7.7 g/dL (6.3-8.2)
[2024-03-24 21:25] VITALS: RESP 18
[2024-03-24] MEDS: KEFLEX 500 MG PO ONE (22:00)
[2024-03-24] MEDS ORDERED: KEFLEX 500 MG ONE (22:00)
[2024-03-24 22:03] VITALS: BP 116/63; PULSE 92; O2SAT 100
--- NOTE | 2024-03-25 08:43 | XRAY ---
Indication: Left upper quadrant/left flank pain. Multiple contiguous axial images obtained through the abdomen and pelvis without contrast. Comparison: November 20, 2023 Lung bases remain clear. Heart not enlarged. Noncontrasted stomach and bowel loops nonobstructed. Normal appendix. Again cholecystectomy and 13.4 cm splenomegaly. No free fluid/air. Remaining liver, pancreas, spleen, adrenal glands, kidneys, ureters, bladder, uterus, and aorta are unremarkable for noncontrast exam. Osseous structures intact again with mild lumbosacral junction degenerative disc osteophyte complex. Impression: Again splenomegaly and lumbosacral junction degenerative disc disease. No new/acute findings on this noncontrast exam.
== END 2024-03-24 22:19 | disposition home or self-care (01) ==
LOC: ED 19:57
DX: N39.0 Urinary tract infection, site not specified (principal); R10.12 Left upper quadrant pain
CPT/HCPCS: 36415; 74176; 80053; 81001; 81025; 82150; 83605; 83690; 85025; 87086; 99283; 99284; A9270-GY